=== PATIENT | female | born 1990 | race Hispanic/Latino ===

== ENCOUNTER 2021-05-28 17:51 | Emergency (ER) | payer OTHER ==
[~2021-05-28] VITALS: Ht 154.9 cm; Wt 93.0 kg
[2021-05-28 17:52] VITALS: BP 170/101
[2021-05-28] MEDS ORDERED: ACETAMINOPHEN 500 MG TABLET PO ONE (18:00)
[2021-05-28 18:34] LABS: BASOPHILS % (AUTO) 0.5 % (0.0-5.0); EOSINOPHILS % (AUTO) 1.1 % (0.0-8.0); HEMATOCRIT 36.1 % (36-48); LYMPHOCYTES % (AUTO) 29.7 % (21.0-51.0); MEAN CORPUSCULAR HEMOGLOBIN 24.8 pg (27.0-33.0); MEAN CORPUSCULAR HGB CONC 30.7 g/dL (32.0-36.0); MEAN CORPUSCULAR VOLUME 80.6 fL (79-99); MONOCYTES % (AUTO) 4.9 % (3.0-13.0); NEUTROPHILS % (AUTO) 63.4 % (40.0-77.0); PLATELET COUNT (AUTO) 262 K/uL (130-400); RED BLOOD CELL COUNT(AUTO) 4.48 MIL/uL (4.00-5.50); RED CELL DISTRIBUTION WIDTH 12.8 % (11.0-15.5); WHITE BLOOD COUNT (AUTO) 8.4 K/uL (4.8-10.8)
[2021-05-28 18:46] LABS: CREATININE 0.5 mg/dL (0.5-1.5)
[2021-05-28 18:51] LABS: BILIRUBIN,TOTAL 0.4 mg/dL (0.2-1.0); TOTAL PROTEIN, SERUM 7.9 g/dL (6.0-8.3)
[2021-05-28] MEDS ORDERED: CYCL10TA16 PO (19:45)
[2021-05-28] MEDS ORDERED: ACET-2247 PO (19:45)
[2021-05-28] MEDS ORDERED: NAPR-1180 PO (19:45)
[2021-05-28] MEDS ORDERED: MECL-226 PO (19:45)
== END 2021-05-28 20:12 | disposition home or self-care (01) ==
LOC: EDH 17:51
DX: S00.03XA Contusion of scalp, initial encounter (principal); E66.9 Obesity, unspecified; Z79.1 Long term (current) use of non-steroidal anti-inflammatories (NSAID); Z68.38 Body mass index [BMI] 38.0-38.9, adult; W01.198A Fall on same level from slipping, tripping and stumbling with subsequent striking against other object, initial encounter; Y93.89 Activity, other specified; Y92.89 Other specified places as the place of occurrence of the external cause; Y99.8 Other external cause status
CPT/HCPCS: 36415; 70450; 72125; 80053; 81025; 84484; 85025

== ENCOUNTER → 2022-03-23 | Emergency (ER) | payer OTHER ==
[~2022-03-23] MED LIST: ACET-2247 PO; CYCL10TA16 PO; MECL-226 PO; NAPR-1180 PO
== END | disposition left against medical advice (07) ==
LOC: EDH 15:39
DX: R42 Dizziness and giddiness (principal); Z53.21 Procedure and treatment not carried out due to patient leaving prior to being seen by health care provider

== ENCOUNTER 2024-06-22 13:43 | Emergency (ER) | payer BC ==
[~2024-06-22] VITALS: Ht 154.9 cm; Wt 94.8 kg
[2024-06-22] MEDS ORDERED: ondanSETRON 4MG INJ IVP ONE (14:00)
[2024-06-22] MEDS ORDERED: morPHINE 4 MG SYG IVP ONE (14:00)
[2024-06-22 14:18] LABS: BASOPHILS # (AUTO) 0.04 K/uL (0.00-0.20); BASOPHILS % (AUTO) 0.5 % (0.0-5.0); EOSINOPHILS # (AUTO) 0.11 K/uL (0.00-0.70); EOSINOPHILS % (AUTO) 1.4 % (0.0-8.0); HEMATOCRIT 41.5 % (36-48); IMMATURE GRANULOCYTE ABSOLUTE 0.02 K/uL (0-1); LYMPHOCYTES # (AUTO) 2.3 K/uL (1.0-4.8); MEAN CORPUSCULAR HEMOGLOBIN 28.5 pg (27.0-33.0); MEAN CORPUSCULAR HGB CONC 32.3 g/dL (32.0-36.0); MEAN CORPUSCULAR VOLUME 88.1 fL (79-99); MONOCYTES # (AUTO) 0.5 K/uL (0.1-1.0); MONOCYTES % (AUTO) 6.7 % (3.0-13.0); NEUTROPHILS # (AUTO) 4.9 K/uL (1.8-7.7); NEUTROPHILS % (AUTO) 62.1 % (40.0-77.0); PLATELET COUNT (AUTO) 278 K/uL (130-400); RED BLOOD CELL COUNT(AUTO) 4.71 MIL/uL (4.00-5.50); RED CELL DISTRIBUTION WIDTH 12.2 % (11.0-15.5); WHITE BLOOD COUNT (AUTO) 7.9 K/uL (4.8-10.8)
[2024-06-22 14:28] LABS: CREATININE 0.6 mg/dL (0.5-1.0); POTASSIUM 4.1 mmol/L (3.5-5.1)
--- NOTE | 2024-06-22 15:59 | HMCIMG ---
US PELVIC NON-OB COMP HISTORY: Pelvic pain COMPARISON: None TECHNIQUE: Transabdominal pelvic ultrasound study was performed. FINDINGS: The uterus measures 9.8 x 5.3 x 6.1 cm. The right ovary measures 2.2 x 2 x 2.2 cm. The left ovary measures 2.8 x 1.9 x 2.2 cm. Flow is seen in both ovaries. Endometrial thickness is 9 mm. There is intrauterine fibroid measuring 3 x 1.4 x 2.4 cm. No free fluid is seen in the cul-de-sac. IMPRESSION: 1. No adnexal mass is seen. Suspect fibroid in the uterus.
[2024-06-22 20:39] LABS: APPEARANCE,URINE TURBID (CLEAR); BILIRUBIN,URINE NEGATIVE (NEGATIVE); COLOR,URINE DARK-BROWN (YELLOW); GLUCOSE, URINE (UA) NEGATIVE (NEGATIVE); KETONES,URINE 10 mg/dL (NEGATIVE); LEUKOCYTE ESTERASE ,URINE 75 Leu/uL (NEGATIVE); NITRATE,URINE NEGATIVE (NEGATIVE); OCCULT BLOOD,URINE LARGE (NEGATIVE); PH,URINE 5.5 (5.0-8.0); PROTEIN,URINE 100 mg/dL (NEGATIVE); UROBILINOGEN,URINE 0.2 mg/dL (0.2-1.0)
[2024-06-22 20:46] LABS: HCG,QUALITATIVE URINE NEGATIVE (NEGATIVE)
[2024-06-22 20:47] LABS: ADD UA MICROSCOPIC YES
[2024-06-22] MEDS ORDERED: cefTRIAXone 1G VIAL IVPB ONE (21:00)
[2024-06-22] MEDS ORDERED: IBUP-2070 PO (21:02)
[2024-06-22] MEDS ORDERED: NITR100C4 PO (21:02)
--- NOTE | 2024-06-22 21:03 | ERN ---
ED Note History of Present Illness Stated Complaint: MENSTURAL CRAMPS Chief Complaint: Pelvic Pain Time Seen by MD: 13:47 Time Seen by Midlevel: 13:47 Dictation: The patient is a 33-year-old female with a history of PCOS who presents to the emergency department with complaints of suprapubic abdominal pain onset Sunday. Patient reports she has been told she had uterine fibroids but reports pain has been getting worse. Reports menstrual cycle scant bleeding. Denies any fevers. Denies any vomiting or diarrhea. Allergies: Coded Allergies: No Known Allergies (Unverified Allergy, Unknown, 05/28/21) Home Meds Active Scripts Meclizine HCl (Meclizine HCl) 12.5 Mg Tablet, 25 MG PO TIDP, #21 TAB Prov:JADE COMER 05/28/21 Cyclobenzaprine HCl (Flexeril) 10 Mg Tab, 10 MG PO BID, #30 TAB Prov:JADE COMER 05/28/21 Acetaminophen (Tylenol) 325 Mg Tablet, 975 MG PO QIDP, #100 TAB Prov:JADE COMER 05/28/21 Naproxen (Naprosyn) 500 Mg Tablet, 500 MG PO BIDPC, #60 TAB Prov:JADE COMER 05/28/21 Past Medical History Past Medical History: Other Additional Past Medical Hx: PCOS, obesity Surgical History: Other Surgical History Other: OVARIAN CYST Family History: Negative Social History: Negative RN Note Reviewed/Agreed w/PFSH: Yes Review of System Dictation Constitutional: Negative for fever,chills, and weight loss Eyes: Negative for injury, pain,redness, and discharge ENT: Negative for injury,pain or swelling Cardiovascular: Negative for chest pain, palpitations, and edema Respiratory: Negative for shortness of breath, cough, and wheezing, Abdomen/GI: Negative for nausea, vomiting, diarrhea, and constipation positive for suprapubic abdominal pain Back: Negative for injury and pain : Negative for injury, bleeding and discharge MS/Extremity: Negative for injury and deformity Skin: Negative for rash, and discoloration Neuro: Negative for headache, weakness, numbness, tingling, and seizure Psych: Negative for suicide ideation, homicidal ideation, and hallucinations Initial Vital Sign VS Vital Signs Date Time Temp Pulse Resp B/P (MAP) Pulse Ox O2 Delivery O2 Flow Rate FiO2 06/22/24 13:48 97.9 75 18 175/106 99 Room Air Physical Exam Dictation Vital Signs reviewed General Appearance: Alert, oriented x 3, no acute distress, well developed, nou rished. Head and Face: non-traumatic. Eyes: PERRL, pink conjunctivas, eyelid no trauma, anterior chamber with arcus senilis. Ears: Pinnas intact and no signs of trauma or erythema ear canals clear and no discharge TM no erythema Nose: No discharge, no bleeding. Oropharynx: Mouth normal, tongue pink. pharynx clear,no erythema, tonsils no exudates, no abscesses noted, mucous mem brane moist Neck: Supple, non-tender, no thyromegaly, no masses, no JVD, no bruits Breast:Deferred Chest:No tenderness, no crepitus, no paradoxical movement, no retractions Lungs:Clear, well-ventilated, symmetric, no rales, no wheezing, no rhonchi, no stridor, good breath sounds bilaterally Heart: Regular rate, regular rhythm, no murmur, no gallops Vascular: no peripheral edema, Abdomen: Soft, positive bowel sounds, nondistended, no guarding, nontender, no rebound, no masses no hepatomegaly, no splenomegaly, no Beltran's sign, no hernias. Rectal: Deferred Genital: Deferred Neurological: Normal speech, motor function intact, sensory function intact Musculoskeletal: Neck nontender, full range of motion, back nontender, full range of motion, Extremities: nontender, full range of motion Skin: Color pink, dry, no turgor, no rash, no lacerations, no abrasions, no contusions. Lymphatic: Deferred Results (Laboratory/Radiology) Laboratory/Radiology Laboratory Tests Test 06/22/24 14:11 06/22/24 20:04 White Blood Count 7.9 K/uL (4.8-10.8) Red Blood Count 4.71 MIL/uL (4.00-5.50) Hemoglobin 13.4 g/dL (12.0-16.0) Hematocrit 41.5 % (36-48) Mean Corpuscular Volume 88.1 fL (79-99) Mean Corpuscular Hemoglobin 28.5 pg (27.0-33.0) Mean Corpuscular Hemoglobin Concent 32.3 g/dL (32.0-36.0) Red Cell Distribution Width 12.2 % (11.0-15.5) Platelet Count 278 K/uL (130-400) Mean Platelet Volume 10.0 fL (7.5-10.5) Immature Granulocyte % (Auto) 0.3 % (0-1) Neutrophils (%) (Auto) 62.1 % (40.0-77.0) Lymphocytes (%) (Auto) 29.0 % (21.0-51.0) Monocytes (%) (Auto) 6.7 % (3.0-13.0) Eosinophils (%) (Auto) 1.4 % (0.0-8.0) Basophils (%) (Auto) 0.5 % (0.0-5.0) Neutrophils # (Auto) 4.9 K/uL (1.8-7.7) Lymphocytes # (Auto) 2.3 K/uL (1.0-4.8) Monocytes # (Auto) 0.5 K/uL (0.1-1.0) Eosinophils # (Auto) 0.11 K/uL (0.00-0.70) Basophils # (Auto) 0.04 K/uL (0.00-0.20) Absolute Immature Granulocyte (auto 0.02 K/uL (0-1) Nucleated Red Blood Cells 0.0 % (0.0-0.19) Sodium Level 140 mmol/L (136-145) Potassium Level 4.1 mmol/L (3.5-5.1) Chloride Level 105 mmol/L (101-111) Carbon Dioxide Level 31 mmol/L (21-32) Blood Urea Nitrogen 15 mg/dL (7-18) Creatinine 0.6 mg/dL (0.5-1.0) Glomerular Filtration Rate Calc 121 mL/min (>90) Random Glucose 108 mg/dL (70-105) H Total Calcium 8.7 mg/dL (8.5-10.1) Urine Color DARK-BROWN (YELLOW) Urine Appearance TURBID (CLEAR) Urine pH 5.5 (5.0-8.0) Urine Specific Whitfield 1.023 (1.001-1.031) Urine Protein 100 mg/dL (NEGATIVE) H Urine Glucose (UA) NEGATIVE mg/dL (NEGATIVE) Urine Ketones 10 mg/dL (NEGATIVE) H Urine Occult Blood LARGE (NEGATIVE) H Urine Nitrate NEGATIVE (NEGATIVE) Urine Bilirubin NEGATIVE mg/dL (NEGATIVE) Urine Urobilinogen 0.2 mg/dL (0.2-1.0) Urine Leukocyte Esterase 75 Abigail/uL (NEGATIVE) H Urine HCG, Qualitative NEGATIVE (NEGATIVE) REASON: pelvic pain ORDERING PHYSICIAN: MARIO GOFF DOCKING PILOT PROCEDURE: PELVCOMP - US PELVIC NON-OB COMP US PELVIC NON-OB COMP HISTORY: Pelvic pain COMPARISON: None TECHNIQUE: Transabdominal pelvic ultrasound study was performed. FINDINGS: The uterus measures 9.8 x 5.3 x 6.1 cm. The right ovary measures 2.2 x 2 x 2.2 cm. The left ovary measures 2.8 x 1.9 x 2.2 cm. Flow is seen in both ovaries. Endometrial thickness is 9 mm. There is intrauterine fibroid measuring 3 x 1.4 x 2.4 cm. No free fluid is seen in the cul-de-sac. IMPRESSION: 1. No adnexal mass is seen. Suspect fibroid in the uterus. Labs Reviewed?: Yes ED Course ED Course Orders Procedure Category Date Status Time Cbc With Differential LAB 06/22/24 Complete 14:00 ,Urine Test LAB 06/22/24 In Process 14:00 Urinalysis Profile LAB 06/22/24 In Process 14:00 Basic Metabolic Panel LAB 06/22/24 Complete 14:00 Us Pelvic Non-Ob Comp US 06/22/24 Resulted 14:00 Ondansetron 4mg Inj PHA 06/22/24 Complete (Zofran 4mg Inj) 14:00 Morphine 4mg Syg PHA 06/22/24 Complete (Morphine 4mg Syg) 14:00 Culture Urine VERNON 06/22/24 Logged 20:47 Ceftriaxone 1g Vial PHA 06/22/24 Verified (Rocephine 1g Inj) 21:00 Current Medications Medications (Trade) Dose Ordered Sig/Eileen Route PRN Reason Start Time Stop Time Status Last Admin Dose Admin Morphine Sulfate (morPHINE 4MG SYG) 4 mg ONCE ONCE IVP 06/22/24 14:00 06/22/24 14:04 DC Ondansetron HCl (zoFRAN 4MG INJ) 4 mg ONCE ONCE IVP 06/22/24 14:00 06/22/24 14:04 DC Vital Signs Date Time Temp Pulse Resp B/P (MAP) Pulse Ox O2 Delivery O2 Flow Rate FiO2 06/22/24 13:48 97.9 75 18 175/106 99 Room Air Medical Decision Making MDM The patient is a 33-year-old female with a history of PCOS who presents to the emergency department with complaints of suprapubic abdominal pain onset Sunday. Patient reports she has been told she had uterine fibroids but reports pain has been getting worse. Reports menstrual cycle scant bleeding. Denies any fevers. Denies any vomiting or diarrhea. CBC showed no leukocytosis, no anemia, chemistry showed no electrolyte imbalance, normal renal function, urinalysis positive for leukocyte esterase. Patient will be treated with the antibiotics. Pelvic ultrasound revealed intrauterine fibroid measuring 3 x 1.4 x 2.4 cm. Patient in no acute distress, nontoxic appearance. Will be discharged to follow up with the OBGYN. Differential diagnosis: UTI, , menstrual cramps, ovarian cyst Need for hospitalization: Patient does not meet criteria for hospitalization. There are no social concerns with this patient. DX & DISP Disposition: Discharge Departure Impression: Primary Impression: Pelvic pain Additional Impressions: Fibroid, uterine, UTI (urinary tract infection) Condition: Stable Scripts Nitrofurantoin Monohyd/M-Cryst (Macrobid 100 mg Capsule) 100 Mg Capsule 1 CAP PO BID for 5 Days, #10 CAP 0 Refills Prov: MARIO GOFF DOCKING PILOT 06/22/24 Ibuprofen (Ibuprofen) 600 Mg Tablet 600 MG PO Q6H PRN for PAIN, #10 TAB Prov: MARIO GOFF DOCKING PILOT 06/22/24 Additional Instructions: Please follow up with your OBGYN in 1-2 days. Take medications as prescribed. If symptoms worsen please return to ER. FOLLOW-UP WITH PRIMARY CARE PROVIDER IN 1 TO 2 DAYS. TAKE MEDICATIONS DIRECTED HERE IN THE EMERGENCY ROOM. OKAY TO CONTINUE HOME MEDICATIONS UNLESS OTHERWISE DISCUSSED DURING YOUR VISIT IN THE EMERGENCY ROOM TODAY. RETURN TO YOUR NEAREST EMERGENCY ROOM IF SYMPTOMS WORSEN OR IF THERE IS NO IMPROVEMENT. CALL 911 IF YOU NEED IMMEDIATE ASSISTANCE. TAKE TYLENOL OR MOTRIN [id number] NEEDED AND IF NO CONTRAINDICATIONS ARE PRESENT. INCREASE ORAL HYDRATION. A WOUND CULTURE OR URINE CULTURE WAS ORDERED HERE IN THE EMERGENCY ROOM DEPARTMENT PLEASE FOLLOW-UP WITH PRIMARY CARE PROVIDER AND ADVISE THEM TO GET REPEAT PORTS FROM OUR FACILITY. IF YOU HAD ANY SAIMA WRAP/SPLINTS THAT WERE APPLIED HERE, PLEASE DO NOT REMOVE THEM UNTIL YOU SEE YOUR PRIMARY CARE OR SPECIALTY. Referrals: ALLYSSA ABREU MD (PCP) Time of Disposition: 21:00 I have reviewed the case, and I agree with, Diagnosis and Plan MARIO GOFF [facility] Jun 22, 2024 21:03
[2024-06-22 21:18] LABS: BACTERIA,URINE RARE /HPF (None Seen); MUCUS,URINE RARE LPF (None Seen); RBC,URINE TNTC /HPF (0-1); SQUAMOUS EPITHELIAL CELL,UR RARE /HPF (0-2)
[2024-06-22] MEDS ORDERED: ketOROlac 30MG VIAL (30MG/ML) IVP ONE (21:30)
[2024-06-22] MEDS: ketOROlac 60 MG VIAL (30MG/ML) IM ONE (23:10)
[2024-06-22] MEDS: cefTRIAXone 1G VIAL IM ONE (23:10)
[2024-06-22] MEDS: ondanSETRON ODT 4MG TAB SL ONE (23:10)
[2024-06-22] MEDS: morPHINE 2 MG SYG IM ONE (23:12)
[2024-06-22 23:29] VITALS: BP 163/97; PULSE 82; RESP 19; TEMP 98.7; O2SAT 98
== END 2024-06-22 23:30 | disposition home or self-care (01) ==
LOC: EDH 13:43
DX: D25.9 Leiomyoma of uterus, unspecified (principal); N39.0 Urinary tract infection, site not specified; E66.9 Obesity, unspecified; Z79.899 Other long term (current) drug therapy; Z98.890 Other specified postprocedural states
CPT/HCPCS: 99284; 76856; 80048; 85025; 87086; 81001; 81025; 36415; 96372 ×3; J1885; J2270; J0696